=== PATIENT | male | born 1990 | race Native Hawaiian/Other Pacific Islander ===

== ENCOUNTER → 2017-03-31 | Outpatient (CLI) | payer OTHER ==
--- NOTE | 2017-03-31 18:04 | DIAGNOSTIC IMAGING REPORT ---
R FOOT MIN 3 VIEWS ROUTINE CLINICAL HISTORY: Right foot pain and swelling COMPARISON: None. DISCUSSION: No fractures or dislocations are visualized. There are no erosive or destructive changes. IMPRESSION: 1. No evidence of fracture 2. No erosive or destructive changes are visualized Electronically signed by: David Razo M.D. 03/31/2017 6:03 PM Dictated Date/Time: 03/31/2017 6:02 PM
== END | disposition home or self-care (01) ==
LOC: C.RAD1850 11:29
PROVIDERS: ATTEND Nurse Practitioner Family
DX: M79.671 Pain in right foot (principal); M79.89 Other specified soft tissue disorders